=== PATIENT | female | born 1975 | race African-American/Black ===

== ENCOUNTER 2019-04-02 14:19 | Emergency (ER) | payer OTHER ==
[~2019-04-02] VITALS: Ht 182.9 cm; Wt 147.0 kg
[2019-04-02 14:48] LABS: BILIRUBIN,URINE SMALL (NEG); CLARITY,URINE CLEAR; NITRITE,URINE NEGATIVE (NEG); PROTEIN,URINE 30 mg/dL (NEG-TRACE)
[2019-04-02 14:52] LABS: COLOR,URINE DK YELLOW
[2019-04-02 14:56] LABS: BACTERIA,URINE 0 /HPF (0-FEW); RBC,URINE TNTC /HPF (0-2); SQUAMOUS EPITHELIAL CELL,UR FEW /LPF; WBC,URINE OCC /HPF (0-4)
--- NOTE | 2019-04-02 15:00 | PHYS DOC ---
Past Medical History Past Medical History: Hypertension Past Surgical History: Additional Information: 1/2PACK/DAY Alcohol Use: Rarely Drug Use: None Adult General Chief Complaint Chief Complaint: PELVIC PAIN HPI HPI Patient is a 43 year old female who presents with has been off the Depakote for months and this is her fourth. She has been off Depakote shot. Patient states her periods are regular and last for 9 days. Patient states she started her menses steady night and began having a burning right lower quadrant sensation and states the bleeding has been heavier than usual. Patient states she's been using a tampon and a pad it's been having to change them every one half hours. Patient denies any back clots. Patient's rating her right lower quadrant burning at a 9 out of 10. Patient states she's been taking ibuprofen and Tylenol for the pain. Patient states she is not taken any pain medication today. Patient states she's also had no bowel movement for the last 4 days. Review of Systems Review of Systems Constitutional: Denies fever or chills [] Eyes: Denies change in visual acuity, redness, or eye pain [] HENT: Denies nasal congestion or sore throat [] Respiratory: Denies cough or shortness of breath [] Cardiovascular: No additional information not addressed in HPI [] GI: Right lower quadrant abdominal pain, denies nausea, vomiting, bloody stools or diarrhea [] : Vaginal bleeding. Denies dysuria or hematuria [] Musculoskeletal: Denies back pain or joint pain [] Integument: Denies rash or skin lesions [] Neurologic: Denies headache, focal weakness or sensory changes [] Endocrine: Denies polyuria or polydipsia [] All other systems were reviewed and found to be within normal limits, except as documented in this note. Current Medications Current Medications Current Medications Medications (Trade) Dose Ordered Sig/[place] Start Time Stop Time Status Last Admin Dose Admin Acetaminophen/ Hydrocodone Bitart (Lortab 5/325) 1 tab 1X ONCE 04/02/19 15:00 04/02/19 15:01 DC 04/02/19 15:08 1 TAB Fentanyl Citrate (Fentanyl 2ml Vial) 50 mcg 1X ONCE 04/02/19 16:15 04/02/19 16:16 DC 04/02/19 16:33 50 MCG Ibuprofen (Motrin) 600 mg 1X ONCE 04/02/19 15:00 04/02/19 15:01 DC 04/02/19 15:09 600 MG Info (CONTRAST GIVEN -- Rx MONITORING) 1 each PRN DAILY PRN 04/02/19 16:15 04/04/19 16:14 Iohexol (Omnipaque 300 Mg/ml) 100 ml 1X ONCE 04/02/19 16:00 04/02/19 16:03 DC 04/02/19 16:20 100 ML Sodium Chloride 1,000 ml @ 1,000 mls/hr 1X ONCE 04/02/19 15:30 04/02/19 16:29 DC 04/02/19 15:58 1,000 MLS/HR Allergies Allergies Allergies Coded Allergies Type Severity Reaction Last Updated Verified No Known Drug Allergies 04/02/19 No Physical Exam Physical Exam Constitutional: Well developed, well nourished, no acute distress, non-toxic appearance. [] HENT: Normocephalic, atraumatic, bilateral external ears normal, oropharynx moist, no oral exudates, nose normal. [] Eyes: PERRLA, EOMI, conjunctiva normal, no discharge. [] Neck: Normal range of motion, no tenderness, supple, no stridor. [] Cardiovascular:Heart rate regular rhythm, no murmur [] Lungs & Thorax: Bilateral breath sounds clear to auscultation [] Abdomen: Bowel sounds normal, soft, RLQ tenderness, no masses, no pulsatile masses. [] Skin: Warm, dry, no erythema, no rash. [] Back: No tenderness, no CVA tenderness. [] Extremities: No tenderness, no cyanosis, no clubbing, ROM intact, no edema. [] Neurologic: Alert and oriented X 3, normal motor function, normal sensory function, no focal deficits noted. [] Psychologic: Affect normal, judgement normal, mood normal. [] Current Patient Data Vital Signs Vital Signs Date Time Temp Pulse Resp B/P (MAP) Pulse Ox O2 Delivery O2 Flow Rate FiO2 04/02/19 16:35 58 18 131/61 (84) 99 Room Air 04/02/19 14:34 97.8 97.8 Lab Values Laboratory Tests Test 04/02/19 14:28 04/02/19 14:44 04/02/19 15:10 Urine Collection Type Unknown Urine Color Dk yellow Urine Clarity Clear Urine pH 6.0 Urine Specific [place] >=1.030 Urine Protein 30 mg/dL (NEG-TRACE) Urine Glucose (UA) Negative mg/dL (NEG) Urine Ketones (Stick) Trace mg/dL (NEG) Urine Blood Large (NEG) Urine Nitrite Negative (NEG) Urine Bilirubin Small (NEG) Urine Urobilinogen Dipstick 1.0 mg/dL (0.2 mg/dL) Urine Leukocyte Esterase Negative (NEG) Urine RBC Tntc /HPF (0-2) Urine WBC Occ /HPF (0-4) Urine Squamous Epithelial Cells Few /LPF Urine Bacteria 0 /HPF (0-FEW) POC Urine HCG, Qualitative Hcg negative (Negative) White Blood Count 4.3 x10^3/uL (4.0-11.0) Red Blood Count 4.57 x10^6/uL (3.50-5.40) Hemoglobin 12.9 g/dL (12.0-15.5) Hematocrit 38.9 % (36.0-47.0) Mean Corpuscular Volume 85 fL (79-100) Mean Corpuscular Hemoglobin 28 pg (25-35) Mean Corpuscular Hemoglobin Concent 33 g/dL (31-37) Red Cell Distribution Width 14.6 % (11.5-14.5) H Platelet Count 268 x10^3/uL (140-400) Neutrophils (%) (Auto) 45 % (31-73) Lymphocytes (%) (Auto) 40 % (24-48) Monocytes (%) (Auto) 9 % (0-9) Eosinophils (%) (Auto) 5 % (0-3) H Basophils (%) (Auto) 2 % (0-3) Neutrophils # (Auto) 2.0 x10^3uL (1.8-7.7) Lymphocytes # (Auto) 1.7 x10^3/uL (1.0-4.8) Monocytes # (Auto) 0.4 x10^3/uL (0.0-1.1) Eosinophils # (Auto) 0.2 x10^3/uL (0.0-0.7) Basophils # (Auto) 0.1 x10^3/uL (0.0-0.2) Sodium Level 140 mmol/L (136-145) Potassium Level 3.9 mmol/L (3.5-5.1) Chloride Level 106 mmol/L (98-107) Carbon Dioxide Level 27 mmol/L (21-32) Anion Gap 7 (6-14) Blood Urea Nitrogen 11 mg/dL (7-20) Creatinine 1.0 mg/dL (0.6-1.0) Estimated GFR (Cockcroft-Gault) 73.2 BUN/Creatinine Ratio 11 (6-20) Glucose Level 93 mg/dL (70-99) Calcium Level 8.6 mg/dL (8.5-10.1) Total Bilirubin 0.3 mg/dL (0.2-1.0) Aspartate Amino Transferase (AST) 20 U/L (15-37) Alanine Aminotransferase (ALT) 27 U/L (14-59) Alkaline Phosphatase 63 U/L (46-116) Total Protein 7.5 g/dL (6.4-8.2) Albumin 3.2 g/dL (3.4-5.0) L Albumin/Globulin Ratio 0.7 (1.0-1.7) L Laboratory Tests 04/02/19 15:10 Laboratory Tests 04/02/19 15:10 EKG EKG [] Radiology/Procedures Radiology/Procedures [] Impressions: [facility] [address] [place], [place] [id number] IMAGING REPORT Signed PATIENT: SERGIO EVANS ACCOUNT: [id number] : 1975 LOCATION: ER AGE: 43 SEX: F EXAM STATUS: REG ER ORD. PHYSICIAN: ROSIBEL DERAS APRN REASON: RLQ ABD pain, Heavy Menstural bleeding PROCEDURE: CT ABD PELV W/ IV CONTRST ONLY CT of the abdomen and pelvis with contrast 04/02/2019 4:28 PM Indication: Right lower quadrant pain. Heavy menstrual bleeding. Comparison study: None Technique: Multidetector CT imaging of the abdomen and pelvis was performed following the administration of IV contrast. Findings: The partially visualized lung bases demonstrate no acute abnormality. The liver, gallbladder, spleen, bilateral adrenal glands, bilateral kidneys, and pancreas, are grossly unremarkable. There is no bowel obstruction. No evidence of acute inflammatory change involving visualized bowel is identified. Appendix is visualized and unremarkable in appearance. Bladder is grossly unremarkable. No free fluid or free air is seen in the abdomen or pelvis. Tampon appears to be present in the vagina. No acute osseous changes are identified. Impression: No evidence of acute intra-abdominal abnormality is identified. CT DOSING PQRS STATEMENT: One or more of the following individualized dose reduction techniques were utilized for this examination: 1. Automated exposure control 2. Adjustment of the mA and/or kV according to patient size 3. Use of iterative reconstruction technique Electronically signed by: Matty White MD (04/02/2019 4:31 PM) [id number] DICTATED and SIGNED BY: MATTY WHITE MD DATE: 04/02/19 1636 Course & Med Decision Making Course & Med Decision Making Patient is a 43 year old female who presents with has been off the Depakote for months and this is her fourth. She has been off Depakote shot. Patient states her periods are regular and last for 9 days. Patient states she started her menses steady night and began having a burning right lower quadrant sensation and states the bleeding has been heavier than usual. Patient states she's been using a tampon and a pad it's been having to change them every one half hours. Patient denies any back clots. Patient's rating her right lower quadrant burning at a 9 out of 10. Patient states she's been taking ibuprofen and Tylenol for the pain. Patient states she is not taken any pain medication today. Patient states she's also had no bowel movement for the last 4 days. Patient has right lower quadrant tenderness with palpation. Abdomen is soft and nontender otherwise. Patient denies any nausea, vomiting, chest pain, shortness of air, dizziness, dysuria, vaginal discharge, STD concerns, numbness or tingling. Patient denies needing sexually transmitted disease testing and is refusing and is this time. Alert And oriented. Ambulatory with a steady gait. PERRLA. Vital signs within normal limits. Patient has a history of 3 C-sections, hypertension for which she takes losartan and she is also taking phentermine for weight loss. CT abdomen pelvis shows no acute findings. Patient is to follow-up with primary care provider or a [employer]. Patient to return to the ED if she is going through more than 1 pad an hour or is having large size clots. Pelvic Exam: Pit Recorder present Abdomen: Nontender External Genitalia: Normal Skin Speculum: Small amount of vaginal bleeding, Normal vaginal mucosa, normal cervical discharge Bimanual: No adnexal masses or tenderness, No CMT Dragon Disclaimer Dragon Disclaimer This electronic medical record was generated, in whole or in part, using a voice recognition dictation system. Departure Departure Impression: Primary Impression: Menses painful Additional Impression: Menstrual bleeding problem Disposition: HOME, SELF-CARE Condition: STABLE Referrals: UNKNOWN PCP NAME (PCP) Patient Instructions: Dysmenorrhea Additional Instructions: Follow-up with [employer] or primary care doctors as possible. Return to the ED if he began having increased bleeding of more than 1 pad an hour or having large clots. Scripts Hydrocodone/Apap 5-325 (NORCO 5-325 TABLET) 1 Each Tablet 1 TAB PO PRN Q6HRS PRN for PAIN, #10 TAB 0 Refills Prov: ROSIBEL DERAS APRN 04/02/19 Problem Qualifiers ROSIBEL DERAS APRN Apr 02, 2019 15:00
[2019-04-02] MEDS: HYDROcodone/APAP 5/325MG 1 TAB TABLET PO ONE (15:08)
[2019-04-02] MEDS: IBUPROFEN 200 MG TABLET. PO ONE (15:09)
[2019-04-02] MEDS: IV NORMAL SALINE 1000ML BAG 1,000 ML IV ONE ×2 (15:14→15:58)
[2019-04-02 15:28] LABS: BASO # 0.1 x10^3/uL (0.0-0.2); BASO % 2 % (0-3); EOS # 0.2 x10^3/uL (0.0-0.7); EOS % 5 % (0-3); HEMATOCRIT 38.9 % (36.0-47.0); HEMOGLOBIN 12.9 g/dL (12.0-15.5); LYMPH # 1.7 x10^3/uL (1.0-4.8); LYMPH % 40 % (24-48); MEAN CORPUSCULAR HEMOGLOBIN 28 pg (25-35); MEAN CORPUSCULAR HGB CONC 33 g/dL (31-37); MEAN CORPUSCULAR VOLUME 85 fL (79-100); MONO # 0.4 x10^3/uL (0.0-1.1); MONO % 9 % (0-9); NEUT % 45 % (31-73); PLATELET COUNT 268 x10^3/uL (140-400); RED BLOOD COUNT 4.57 x10^6/uL (3.50-5.40); RED CELL DISTRIBUTION WIDTH 14.6 % (11.5-14.5); WHITE BLOOD COUNT 4.3 x10^3/uL (4.0-11.0)
[2019-04-02 15:36] LABS: CALCIUM 8.6 mg/dL (8.5-10.1); GFR 73.2; POTASSIUM 3.9 mmol/L (3.5-5.1)
[2019-04-02 15:42] LABS: ALBUMIN 3.2 g/dL (3.4-5.0); ALBUMIN/GLOBULIN RATIO 0.7 (1.0-1.7); TOTAL BILIRUBIN 0.3 mg/dL (0.2-1.0); TOTAL PROTEIN 7.5 g/dL (6.4-8.2)
[2019-04-02] MEDS ORDERED: CONTRAST GIVEN. MC PRN (16:15)
[2019-04-02] MEDS: IOHEXOL 300 MG/ML 100ML VIAL. IV ONE (16:20)
[2019-04-02] MEDS: fentaNYL PF VIAL 100 MCG/2 ML VIAL IV ONE (16:33)
--- NOTE | 2019-04-02 16:34 | RAD ---
CT of the abdomen and pelvis with contrast 04/02/2019 4:28 PM Indication: Right lower quadrant pain. Heavy menstrual bleeding. Comparison study: None Technique: Multidetector CT imaging of the abdomen and pelvis was performed following the administration of IV contrast. Findings: The partially visualized lung bases demonstrate no acute abnormality. The liver, gallbladder, spleen, bilateral adrenal glands, bilateral kidneys, and pancreas, are grossly unremarkable. There is no bowel obstruction. No evidence of acute inflammatory change involving visualized bowel is identified. Appendix is visualized and unremarkable in appearance. Bladder is grossly unremarkable. No free fluid or free air is seen in the abdomen or pelvis. Tampon appears to be present in the vagina. No acute osseous changes are identified. Impression: No evidence of acute intra-abdominal abnormality is identified. CT DOSING PQRS STATEMENT: One or more of the following individualized dose reduction techniques were utilized for this examination: 1. Automated exposure control 2. Adjustment of the mA and/or kV according to patient size 3. Use of iterative reconstruction technique Electronically signed by: Matty Arredondo MD (04/02/2019 4:31 PM) [id number]
[2019-04-02] MEDS ORDERED: HYDR-3164 PO (16:51)
[2019-04-02 17:20] VITALS: BP 155/96
== END 2019-04-02 17:20 | disposition home or self-care (01) ==
LOC: ER 14:19
DX: N94.6 Dysmenorrhea, unspecified (principal); R10.31 Right lower quadrant pain; I10 Essential (primary) hypertension; F17.200 Nicotine dependence, unspecified, uncomplicated
CPT/HCPCS: 36415; 74177; 80053; 81001; 81025; 85025; 96374; 99285; J3010; J7030; Q9967

== ENCOUNTER 2021-12-16 16:23 | Emergency (ER) | payer OTHER ==
[~2021-12-16] VITALS: Ht 182.9 cm; Wt 153.2 kg
[~2021-12-16 16:23] MED LIST: HYDR-3164 PO
[2021-12-16] MEDS ORDERED: IV NORMAL SALINE 1000ML BAG 1,000 ML IV ONE (17:00)
[2021-12-16 17:07] LABS: BASO % 1 % (0-3); EOS # 0.2 x10^3/uL (0.0-0.7); EOS % 3 % (0-3); HEMATOCRIT 40.9 % (36.0-47.0); HEMOGLOBIN 13.1 g/dL (12.0-15.5); LYMPH # 1.1 x10^3/uL (1.0-4.8); LYMPH % 19 % (24-48); MEAN CORPUSCULAR HEMOGLOBIN 27 pg (25-35); MEAN CORPUSCULAR HGB CONC 32 g/dL (31-37); MEAN CORPUSCULAR VOLUME 83 fL (79-100); MONO # 0.4 x10^3/uL (0.0-1.1); MONO % 6 % (0-9); NEUT # 4.2 x10^3/uL (1.8-7.7); NEUT % 71 % (31-73); PLATELET COUNT 353 x10^3/uL (140-400); RED BLOOD COUNT 4.94 x10^6/uL (3.50-5.40); RED CELL DISTRIBUTION WIDTH 15.8 % (11.5-14.5)
[2021-12-16 17:16] LABS: BILIRUBIN,URINE NEGATIVE (NEG); CLARITY,URINE HAZY; COLOR,URINE YELLOW; NITRITE,URINE NEGATIVE (NEG); PROTEIN,URINE 30 mg/dL (NEG-TRACE)
[2021-12-16 17:19] LABS: CALCIUM 8.7 mg/dL (8.5-10.1); GFR 72.2
[2021-12-16 17:20] LABS: BACTERIA,URINE MODERATE /HPF (0-FEW)
[2021-12-16 17:24] LABS: ALBUMIN 3.6 g/dL (3.4-5.0); ALBUMIN/GLOBULIN RATIO 0.7 (1.0-1.7); TOTAL BILIRUBIN 0.4 mg/dL (0.2-1.0); TOTAL PROTEIN 8.8 g/dL (6.4-8.2)
[2021-12-16] MEDS ORDERED: KETOROLAC 15 MG/ML VIAL. IVP ONE (17:30)
[2021-12-16] MEDS ORDERED: ONDANSETRON PF 4 MG/2 ML VIAL. IVP ONE (17:30)
--- NOTE | 2021-12-16 17:32 | RAD ---
INDICATION: Reason: flank pain, n/v / Spl. Instructions: / History: COMPARISON: March 2019 TECHNIQUE: Axial CT images were obtained through the abdomen and pelvis without intravenous contrast. One or more of the following individualized dose reduction techniques were utilized for this examinat ion: 1. Automated exposure control; 2. Adjustment of the mA and/or kV according to patient size; 3 . Use of iterative reconstruction technique. FINDINGS: Vascular: Scattered calcific atherosclerosis. Hepatobiliary: Liver is low density which can be seen with fatty infiltration. Liver is prominent in size. Pancreas: No peripancreatic edema. Spleen: Spleen unremarkable. Renal/Bladder: There is some thickening and nodularity of the left adrenal gland. Measures up to abou t 12 mm in thickness. No hydronephrosis. Urinary bladder is largely decompressed. Gastrointestinal: No periappendiceal inflammatory changes. No dilated loops of bowel to suggest obstr uction. Scattered prominent lymph nodes within the mesentery. Degenerative changes of the spine. Degenerative changes of the hips. There is some facet hypertrophy within the lumbar spine as well as some erosions including at L4-5 IMPRESSION: * No evidence of bowel obstruction or appendicitis. * Liver is low density. Nonspecific but can be seen with fatty infiltration. * There are scattered mildly enlarged lymph nodes within the mesentery of unknown etiology. * Left adrenal gland thickening and nodularity. * No hydronephrosis. Electronically signed by: Karthik Khan MD (12/16/2021 5:30 PM) [id number]
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
[2021-12-16 18:21] VITALS: BP 164/85
== END 2021-12-16 18:30 | disposition home or self-care (01) ==
LOC: ER 16:23
DX: R10.9 Unspecified abdominal pain (principal); E27.8 Other specified disorders of adrenal gland; R11.0 Nausea; M54.50 Low back pain, unspecified; I10 Essential (primary) hypertension; Z72.0 Tobacco use; Z98.51 Tubal ligation status
CPT/HCPCS: 36415; 74176; 80053; 81001; 85025; 87086; 96361; 96374; 96375; 99284; J1885; J2405; J7030